=== PATIENT | female | born 1990 | race Caucasian/White ===

== ENCOUNTER → 2017-02-09 19:50 | Outpatient (CLI) | payer MEDICAID ==
[2017-02-09 20:30] LABS: APPEARANCE CLEAR (CLEAR); BILIRUBIN NEGATIVE (NEGATIVE); COLOR STRAW (YELLOW); GLUCOSE NEGATIVE (NEGATIVE); KETONE NEGATIVE (NEGATIVE); NITRITE NEGATIVE (NEGATIVE); PROTEIN NEGATIVE (NEGATIVE); SPECIFIC GRAVITY 1.005 (1.005-1.020); UROBILINOGEN NORMAL (NORMAL)
[2017-02-09 20:31] LABS: BACTERIA FEW /hpf (NONE SEEN); EPITHELIAL CELLS 0-5 /hpf (0-5); LEUKOCYTE ESTERASE TRACE (NEGATIVE); RED CELLS - URINE NONE SEEN /hpf (0-5); WHITE CELLS - URINE 0-5 /hpf (0-5)
== END | disposition home or self-care (01) ==
LOC: D.LDO 19:50
PROVIDERS: Obstetrics & Gynecology
DX: O26.853 Spotting complicating pregnancy, third trimester (principal); Z3A.38 38 weeks gestation of pregnancy

== ENCOUNTER 2017-02-18 04:30 | Inpatient (IN) | payer MEDICAID ==
[~2017-02-18] VITALS: Ht 160 cm; Wt 76.4 kg
[2017-02-18] MEDS ORDERED: AMOXICILLIN500 M1 (05:21)
[2017-02-18 05:47] VITALS: BP 125/58; Ht 160 cm; Wt 76.4 kg
[2017-02-18 06:05] LABS: HEMATOCRIT 35.1 % (36.0-48.0); HEMOGLOBIN 11.8 g/dL (12-16); MCH 32.6 pg (26.0-34.0); MCHC 33.6 g/dL (31.0-37.0); MEAN PLATELET VOLUME 11.9 fL (7.4-10.4); RBC 3.62 10x6/uL (4.00-5.40); RDW 12.3 % (11.5-14.5)
[2017-02-18 06:07] LABS: APPEARANCE CLEAR (CLEAR); BILIRUBIN NEGATIVE (NEGATIVE); COLOR YELLOW (YELLOW); GLUCOSE NEGATIVE (NEGATIVE); KETONE NEGATIVE (NEGATIVE); LEUKOCYTE ESTERASE NEGATIVE (NEGATIVE); NITRITE NEGATIVE (NEGATIVE); PROTEIN NEGATIVE (NEGATIVE); UROBILINOGEN NORMAL (NORMAL)
--- NOTE | 2017-02-18 14:59 | NUR ---
PT amb to NBN with spouse.
--- NOTE | 2017-02-18 16:04 | NUR ---
Called to room, up to bathroom with no assistance, voided 300ml. Explained would measure at least one more void. States her understanding and denies questions. No other needs at this time.
--- NOTE | 2017-02-18 17:27 | NUR ---
Motrin given as charted on emar for pt complaint of cramping. Denies any other needs at this time. Has been up to bathroom and voided 400ml explained to her that she no longer has to measure voids and that she is able to shower when she feels better. Side rails up x 2 with call light in reach. Infant in crib at bedside.
--- NOTE | 2017-02-18 18:30 | NUR ---
Pt sitting up in bed visiting with friends, infant remains in room. Rates her pain at 3/10, denies demerol at this time but states she would like to take it maybe after her shower. request that she call for nurse when she is ready to take her shower, no other need at this time. call light in reach.
[2017-02-18 20:25] VITALS: BP 128/62
--- NOTE | 2017-02-18 20:25 | NUR ---
LYING IN BED WITH HOB ELEVATED 45 DEGREES. AWAKE AND ORIENTED. HAS CHEST TO CHEST UNDER COVERS. PT. RATES ABD. CRAMPING A 4 OF 10 ON PAIN SCALE. BREATH SOUNDS CLEAR AND BOWEL SOUNDS AUDIBLE. IV SALINE LOCK NOTED IN LT WRIST AREA. PT. REQUEST IV BE TAKEN OUT. EXPLAINED THAT IF BLOOD PRODUCTS NEEDS TOMORROW, IV WOULD NEED TO BE RESTARTED. PT. STATES THAT SHE UNDERSTANDS BUT WANTS IV OUT FOR TONIGHT. FUNDUS FIRM U/1 AND LOCHIA RUBRA SCANT TO MOD. ICE WATER PROVIDED.
--- NOTE | 2017-02-18 20:30 | NUR ---
DEMEROL 50 MG PO GIVEN TO PT. REQUESTED. PT. COMMENTING TO FOB THAT SHE WANTS TO GET INTO SHOWER. INFORMED PT. THAT SHE NEEDS TO TAKE TEPID SHOWER FOR THE FIRST TIME TO AVOID POTENTIALLY FEELING LIGHT HEADED FROM HOT SHOWER. PT. AND FOB STATE UNDERSTANDING. ALREADY HAS TOWELS AND WASHCLOTHS IN ROOM FOR SHOWER.
--- NOTE | 2017-02-18 20:32 | NUR ---
IV SALINE LOCK DISCONTINUED WITH INTACT CATH. TIP NOTED.
--- NOTE | 2017-02-18 21:16 | NUR ---
PT. OUT OF SHOWER AND WALKING AROUND IN ROOM. FOB IN BED WITH CHEST TO CHEST. PT. STATES IT FEELS GOOD TO BE OUT OF BED. RATES PAIN A 2 OF 10 ON PAIN SCALE.
--- NOTE | 2017-02-18 21:50 | NUR ---
REQUEST BE RETURNED TO NBN. PT. AND FOB DESIRES TO EAT. RETURNED TO NBN.
--- NOTE | 2017-02-18 23:00 | NUR ---
LYING ON RT. SIDE WITH FOB ALSO IN BED LYING ON RT. SIDE. DO NOT AROUSE WHEN DOOR OPENED. TV REMAINS PLAYING AND LIGHTS DIMMED. RESPIRATIONS REGULAR.
[2017-02-19 00:39] VITALS: BP 131/67
--- NOTE | 2017-02-19 00:39 | NUR ---
PT. AWAKE AT PRESENT AND FOB OUT OF BED WITH PT. PT. REPORTS THAT SHE HAS NO COMPLAINTS AND NO NEEDS AT THIS TIME. PT'S FOB STATES THAT PEOPLE NEXT DOOR TO THEM SEEMED TO BE HAVING A HEATED DEBATE AND HE WANTED TO BE SURE THAT STAFF WAS AWARE. INFORMED INFORMATION WAS APPRECIATED. VITAL SIGNS OBTAINED.
--- NOTE | 2017-02-19 03:00 | NUR ---
PT. AND FOB LYING IN BED TOGETHER. PT. ON LT SIDE. RESPIRATIONS REGULAR. TV OFF AT THIS TIME.
--- NOTE | 2017-02-19 05:14 | NUR ---
PT. UP IN BATHROOM VOIDING. C/O ABD. CRAMPING THAT SHE RATES A 4 OF 10 ON PAIN SCALE. CHUX ON BED CHANGED. MORE LARRY PANTIES AND PADS SUPPLIED TO PT. FOB LYING ON SOFA.
[2017-02-19 05:15] LABS: RAPID PLASMA REAGIN Non Reactive (Non Reactive)
--- NOTE | 2017-02-19 05:18 | NUR ---
MOTRIN ADMINISTERED PER ORDER AND PT. REQUEST. LYING ON BACK WITH HOB AT 30 DEGREES. WARM BLANKET GIVEN TO PT. TO PLACE ON ABD. ICE WATER PROVIDED. PT. DENIES ANY FURTHER NEEDS OTHER THAN BABY TO ROOM.
--- NOTE | 2017-02-19 05:22 | NUR ---
INFANT TO PT'S ROOM FOR VISIT PER HER REQUEST. ID BAND OF INFANT AND MOTHER MATCHED. PT. INFORMED OF LAST FEEDING FOR INFANT.
--- NOTE | 2017-02-19 06:16 | NUR ---
PT. NOTED LYING ON BACK WITH HOB AT 15 DEGREES. INFANT NOTED ON PT'S CHEST UNDER COVERS. THIS NURSE STOOD BESIDE BED AND NOTED PT.'S EYES CLOSED. CALLED PT. BY NAME. PT. LOOKS UP AND WAS ASKED IF THIS NURSE COULD PUT INFANT BACK INTO CRIB. PT. RESPONDS, "I AM NOT ASLEEP."
--- NOTE | 2017-02-19 07:15 | NUR ---
Call light answered, pt request a bottle brought to room for . Verified with nursery for correct formula, this is taken to room. Pt is up to bathroom at this time and rates pain at 8/10, pain meds offered and she is agreeable.
--- NOTE | 2017-02-19 07:30 | NUR ---
Demerol 100mg given as seen on emar. Large cup of ice with Dr Gómez per request. Denies any clots with voids but does say she is having some burning with voids, ask that she call for nurse next time up to bathroom so that tucks pads can be given for burning. Will call when finished feeding so that assessment may be finished.
[2017-02-19 08:30] VITALS: BP 155/67
--- NOTE | 2017-02-19 08:30 | NUR ---
Am assessment completed as charted on flowsheet. Pt is walking around room, dressed in her own clothes, rates pain/cramping at 0/10. Denies clots with voids and states her bleeding is less than usual period. Provided with tucks pad and explained when and how to use and she voices understanding of use and that can call for nurse if needed. VSS as charted on graphic. No needs voiced at this time, questions answered about cell phone service and walking around unit. remains in nursery at this time.
[2017-02-19 08:46] LABS: HEMATOCRIT 33.2 % (36.0-48.0); MCH 32.6 pg (26.0-34.0); MCHC 33.1 g/dL (31.0-37.0); MCV 98.5 fL (80.0-100.0); RBC 3.37 10x6/uL (4.00-5.40); RDW 12.6 % (11.5-14.5)
[2017-02-19 08:48] LABS: WBC 11.7 10x3/uL (4.8-10.8)
--- NOTE | 2017-02-19 09:24 | NUR ---
PT AND SPOUSE AMB TO WAITING AREA TO USE CELL PHONE.
--- NOTE | 2017-02-19 10:30 | NUR ---
Infant taken to room via crib swaddled in blankets x 2. infant and pt id bands checked and confirmed. Pt states understanding that she needs to start feeding within next 30 minutes. When asked she denies pain or cramping and has no needs for nurse at this time.
--- NOTE | 2017-02-19 12:01 | NUR ---
Large cup of ice taken to room as pt requested. Visiting with family/friends with infant in room. Denies any needs at this time.
--- NOTE | 2017-02-19 12:04 | OP ---
PATIENT NAME: SAEID DAMIAN MEDICAL RECORD: [id number] :90 LOCATION:[id number] ADMISSION DATE:02/18/17 SURGEON: SHANNON JACOB MD DATE OF OPERATION: 02/18/2017 Delivery Note Spontaneous vaginal delivery of 8 pound 3-1/2 ounce male with 9 and 9 Apgars, epidural anesthesia. No lacerations, no episiotomy, spontaneous delivery of intact-appearing placenta. ESTIMATED BLOOD LOSS: 400 cc. COMPLICATIONS OF DELIVERY: None. TRANSINT:[id number] Voice Confirmation ID: [id number] DOCUMENT ID: [id number] SHANNON JACOB MD at 1204 CC: [id number] DICTATION DATE: 02/18/17 1344 HEATING TECHNICIAN: 02/18/17 2314 ADM IN [place] [id number] [place] [address]
--- NOTE | 2017-02-19 15:04 | NUR ---
pt and spouse watching tv with infant in crib at bedside. When asked about pain pt states that cramps are starting again and rates at 5/10, pain med and motrin offered and she is agreeable as charted on emar. Large ice water per her request. Side rails up x 2 with phone and call light in reach.
--- NOTE | 2017-02-19 15:41 | NUR ---
Pain reassessment, pt continue to complain of increase cramping that she rates at 4-5/10. Demerol 50mg given and pt states understanding cannot be given again until 4 hours from this time. no other needs. infant in crib at bedside. side rails up x 2 with phone and call light in reach.
--- NOTE | 2017-02-19 17:00 | NUR ---
denies pain or discomfort at this time, keiko pad and panties provided per request. Denies any other needs at this time.
--- NOTE | 2017-02-19 19:05 | NUR ---
RN AT PT BS WITH Jose CARTER RN FOR BEDSIDE REPORT.
--- NOTE | 2017-02-19 19:25 | NUR ---
RN TO PT BS FOR YARON. PT SITTING IN BED IN NO ACUTE DISTRESS. PT IS A 26YO G2 NOW P2 WITH OF VIABLE MALE YESTERDAY @ 1140 @ 39.2 WKS GESTATION. PT WITH NO LACERATIONS OR EPIS. AAOX3. HR REGULAR. LUNGS CTAB. ABDOMEN SOFT AND NON TENDER. BS ACTIVE TIMES 4. PT STATES SHE IS PASSING GAS AND VOIDING WITHOUT DIFFICULTY. PT DENIES BM SINCE . FUNDUS NOT PALPATED AT THIS TIME. LOCHIA RUBRA SCANT. PERINIUM APPEARS TO BE INTACT. LARRY PAD AND PANTIES IN PLACE. NO IV ACCESS. PT STATES SHE IS TOLERATING A REGULAR DIET WITHOUT DIFFICULTY. NO SWELLING NOTED TO UPPER OR LOWER EXTRIMITIES BILATERALLY. PT RATES PAIN AT 4/10, DENIES THE NEED FOR PAIN MEDICATION AT THIS TIME. PT DENIES ANY NEEDS. BED IN LOW POSITION, SIDE RAILS UP TIMES 2, CALL LIGHT AND PHONE IN REACH. AT PT BS FOR COUPLET CARE. FAMILY AT PT BS TIMES 2 FOR SUPPORT AND ASSISTANCE. WILL CONT TO MONITOR PT STATUS.
[2017-02-19 19:33] VITALS: BP 133/72
--- NOTE | 2017-02-19 21:17 | NUR ---
PT TRANSFERED TO [facility]7 TO CONT TO PP CARE. PT AMBULATED WITHOUT DIFFICULTY. PT C/O PAIN, RATES 8/, REQUESTS MEDICATION. DEMEROL 100MG PROVIDED AT THIS TIME PO. PT DENIES ANY FURTHER NEEDS AT THIS TIME. BED IN LOW POSITION, SIDE RAILS UP TIMES 2, CALL LIGHT AND PHONE IN REACH. REMAINS AT PT BS FOR COUPLET CARE AND FAMILY TIMES 3 REMAIN AT PT BS FOR SUPPORT AND ASSISTANCE. WILL CONT TO MONITOR PT STATUS.
--- NOTE | 2017-02-19 22:18 | NUR ---
RN TO PT BS. PT AMBULATING IN [place] TO SHOWER. PT DENIES ANY NEEDS AT THIS TIME. PT REQUESTS THAT INFANT BE TAKEN TO NURSERY TO ALLOW HER TO REST. TRANSPORTED TO [facility]IA [facility] FOR OBSERVATION. REPORT GIVEN TO NURSERY RN.
--- NOTE | 2017-02-19 22:55 | NUR ---
REPORT GIVEN TO Gretchen COPELAND RN TO [facility].
--- NOTE | 2017-02-19 23:43 | NUR ---
PT RESTING QUIETLY AT THIS TIME WITH EYES CLOSED. RESPIRATIONS EVEN, NON-LABORED. NO ACUTE DISTRESS NOTED AT THIS TIME. BED LOW. PHONE AND CALL LIGHT IN REACH. SRX2.
--- NOTE | 2017-02-20 05:37 | NUR ---
PT ON C/L WITH REQUEST FOR BLANKET AND ICE WATER AT THIS TIME. PT DENIES OTHER NEEDS. BED LOW. PHONE AND CALL LIGHT IN REACH. SRX2.
--- NOTE | 2017-02-20 07:40 | NUR ---
Pt awake, sitting up in bed while feeding infant. Rates her pain/cramping at 7/10 this am and request pain medication. Denies any clots with voids and states bleeding now is less than her period. Has no questions this am except when discharge would occur, understands that Dr Castro and jerome would make be in this am and discharge would be as soon as possible after orders are received. Lillie pads and panties placed in bathroom. Spouse at bedside. Side rails up x 2 with phone and call light in reach.
[2017-02-20 07:57] VITALS: BP 128/70
--- NOTE | 2017-02-20 09:06 | NUR ---
PT REQUESTED PAIN MED. HER PAIN IS ABOUT A 4. DEMEROL 100 MG GIVEN PO.
--- NOTE | 2017-02-20 10:21 | NUR ---
PT IS SITTING UP IN BED, HOLDING BABY. OFFERS NO COMPLAINTS.
[2017-02-20] MEDS ORDERED: IBUPROFEN600 MG PO (10:42)
--- NOTE | 2017-02-20 11:45 | NUR ---
Verbal report received from Kristina Frazier rn.
--- NOTE | 2017-02-20 12:30 | NUR ---
Pt denies pain or discomfort and voices no needs at this time.
--- NOTE | 2017-02-20 14:30 | NUR ---
Pt refuses wheelchair, amb to front with in carrier. Home by private car with spouse.
== END 2017-02-20 14:41 | disposition home or self-care (01) | DRG 775 ==
LOC: D.LD 04:30
PROVIDERS: ADMIT Obstetrics & Gynecology
PROC: 10E0XZZ Delivery of Products of Conception, External Approach (ICD-10-PCS; principal; 2017-02-18)
DX: O99.824 Streptococcus B carrier state complicating childbirth (principal); Z3A.39 39 weeks gestation of pregnancy; Z37.0 Single live birth